=== PATIENT | male | born 1985 | race Caucasian/White ===

== ENCOUNTER 2020-05-13 19:46 | Emergency (ER) | payer OTHER ==
[2020-05-14] MEDS ORDERED: PREDNISONE 20 MG TABLET PO ONE (00:14)
--- NOTE | 2020-05-14 00:32 | ER Document Report ---
ED General - General Chief Complaint: Cough Stated Complaint: FEVER COUGH SORE THROAT Time Seen by Provider: 05/13/20 23:36 Primary Care Provider: GONZALO ORTEGA MD [Primary Care Provider] - Follow up as needed Notes: 34-year-old male presents emergency department complaining of a cough and fever to a T-max of 101.4 after mowing the lawn on Monday. Also complains of a sore somewhat scratchy throat. Denies any specific knowledge of exposure to coronavirus however he states that 1 of his coworkers children may have tested positive, he is not certain. Patient is an asthmatic, complains of occasional shortness of breath, continues to use his daily maintenance inhalers as instructed but also notes that he has been having to use his albuterol rescue inhaler once a day. Denies rhinorrhea, denies chest pain. Denies history of intubation for his asthma. Past Medical History - General Information source: Patient - Social History Smoking Status: Former Smoker Frequency of alcohol use: None Drug Abuse: None Family History: Reviewed & Not Pertinent - Past Medical History Cardiac Medical History: Reports: Hx Hypercholesterolemia, Hx Hypertension Pulmonary Medical History: Reports: Hx Asthma GI Medical History: Reports: Hx Gastroesophageal Reflux Disease Past Surgical History: Reports: Hx Cholecystectomy Review of Systems - Review of Systems Constitutional: Diaphoresis, Fever EENT: See HPI, Throat pain Cardiovascular: No symptoms reported. denies: Chest pain, Palpitations Respiratory: See HPI, Cough, Short of breath. denies: Hurts to breathe Gastrointestinal: No symptoms reported -: Yes All other systems reviewed and negative Physical Exam - Vital signs Vitals: Temp Pulse Resp BP Pulse Ox 99.3 F 88 20 153/89 H 93 05/13/20 20:25 05/13/20 20:25 05/13/20 20:25 05/13/20 20:25 05/13/20 20:25 Interpretation: Hypertensive - Notes Notes: GENERAL: Alert, interacts well. No acute distress. HEAD: Normocephalic, atraumatic EYES: Pupils equal, round and reactive to light, extraocular movements intact. ENT: Oral mucosa moist, tongue midline. Postnasal drip. Cobblestoning in the posterior oropharynx. NECK: Full range of motion, supple, trachea midline. LUNGS: Respiratory distress, no tachypnea, trace expiratory wheezing. HEART: Regular rate and rhythm, no murmurs, gallops, rubs. ABDOMEN: Soft, nontender, nondistended, bowel sounds present in all 4 quadrants. EXTREMITIES: Moves all 4 extremities spontaneously, no edema. No cyanosis. NEUROLOGICAL: Alert and oriented x3, normal speech. PSYCH: Normal mood, normal affect. SKIN: Warm, Dry, normal turgor, no rashes or lesions noted. Course - Re-evaluation Re-evalutation: 05/14/20 02:50 Chest X-Ray 05/14/20 00:14 IMPRESSION: No active disease. 05/14/20 02:50 Chest x-ray negative, coronavirus swab pending. Discussed with patient that given fever and cough this is likely viral rather than allergic. Patient has been instructed on coronavirus quarantine until test results come back. As he is is an asthmatic and is using his inhaler more than usual patient will be started on prednisone 40 mg once a day for the next 5 days. No hypoxia, no indication for admission. Discharged home. - Vital Signs Vital signs: Temp Pulse Resp BP Pulse Ox 99.3 F 88 20 153/89 H 93 05/13/20 23:43 05/13/20 20:25 05/13/20 20:25 05/13/20 20:25 05/13/20 20:25 Discharge - Discharge Clinical Impression: Asthma exacerbation, mild, Viral URI with cough Condition: Stable Disposition: HOME, SELF-CARE Instructions: COVID-19 Guidance for Persons Under Investigation Additional Instructions: Please use nasal saline rinses such as a NetiPot or NeilMed Sinus Rinses. You may use Benadryl at night and Sudafed during the day both as directed on the box [id number]. Please use Nasonex or other nasal steroid 1 squirt per nostril twice a day. Many of these are available [id number] but I have written you a prescription for Nasonex specifically. Please use ibuprofen (Motrin or Advil) 600-800 mg every 8 hours as needed for pain or fever. You may also use acetaminophen (Tylenol) 1000 mg every 4-6 hours as needed for pain or fever. Please be aware that many medications contain acetaminophen, do not exceed a total of 1000 mg of acetaminophen every 6 hours. Please take the prednisone 40 mg daily for 4 more days. There was no sign of pneumonia on your chest x-ray. Prescriptions: Benzonatate [Tessalon Perles 100 mg Capsule] 100 mg PO Q8HP PRN #40 capsule PRN Reason: Prednisone [Deltasone 20 mg Tablet] 40 mg PO DAILY #8 tablet Forms: Return to Work Referrals: GONZALO ORTEGA MD [Primary Care Provider] - Follow up as needed
--- NOTE | 2020-05-14 02:49 | RADIOLOGY REPORT (SQ) ---
CHEST 1 VIEW on 05/14/2020 at 2:10 AM CLINICAL INDICATION: Cough, fever COMPARISON: None FINDINGS: The lungs are clear. Cardiac, hilar and mediastinal contours are within normal limits. Pulmonary vascularity is within normal limits. No bony abnormality is noted. IMPRESSION: No active disease.
[2020-05-14 03:15] VITALS: BP 139/83
== END 2020-05-14 03:15 | disposition home or self-care (01) ==
LOC: ER 19:46
DX: J06.9 Acute upper respiratory infection, unspecified (principal); B97.89 Other viral agents as the cause of diseases classified elsewhere; J45.901 Unspecified asthma with (acute) exacerbation; R05 Cough; R50.9 Fever, unspecified; J02.9 Acute pharyngitis, unspecified; R06.02 Shortness of breath; I10 Essential (primary) hypertension; Z79.899 Other long term (current) drug therapy; Z87.891 Personal history of nicotine dependence; Z20.828 Contact with and (suspected) exposure to other viral communicable diseases
CPT/HCPCS: 99283; 87635; 71045; J7512; C9803